=== PATIENT | male | born 1980 | race African-American/Black ===

== ENCOUNTER 2023-04-25 09:58 | Outpatient (CLI) | payer OTHER, SELFPAY ==
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
== END 2023-04-25 09:59 | disposition home or self-care (01) ==
PROVIDERS: PCP Emergency Medicine; Visit Provider Emergency Medicine
DX: M23.51 Chronic instability of knee, right knee (principal); M16.11 Unilateral primary osteoarthritis, right hip
CPT/HCPCS: 73502; 73552; 73564; 73590; 73610; 73630

== ENCOUNTER 2024-04-15 10:07 | Outpatient (CLI) | payer OTHER, SELFPAY ==
--- NOTE | ~2024-04-15 | MR_ITS ---
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 These were followed by axial T2-weigh bro, diffusion weighted, gradient, and FLAIR images. Findings: No acute infarct, acute intracranial hemorrhage or mass lesion identified. There is large a rupinder of right frontal lobe encephalomalacia and gliosis. There is mild background periventricular whit e matter disease. Ventricles and subarachnoid spaces are unremarkable. Orbits are unremarkable. There is bilateral maxi llary and ethmoid sinus disease. Mastoid air cells are clear. Major intracranial flow voids are intac t. Sagittal midline structures are intact. 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 Correlate for prior tra nereyda or surgery. Mild background chronic microvascular ischemic change. Sinus disease, as above. Reviewed, dictated and finalized at [facility]. TECH IMPRESSION: Large area of chronic encephalomalacia and gliosis in the right frontal lobe. C orrelate for prior trauma or surgery. Mild background chronic microvascular ischemic change. Sinus disease, as above.
--- OUTSIDE RECORDS SUMMARY | 2024-04-15 10:45 | XMS_ITS | Encounter Summary ---
Author Organization 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 Historical Provider [facility] BARBARA QUAN Final Result documented in this encounter Visit Diagnoses Not on filedocumented in this encounter Care Teams Digital Media Analyst Relationship Specialty Start Date End Date No, Physician PCP - General 10/08/18 10/13/21 Josiah Hyatt MD PCP - General Emergency Medicine 10/14/21 documented as of this encounter
--- OUTSIDE RECORDS SUMMARY | 2024-04-15 10:45 | XMS_ITS | Clinical Summary ---
Author Organization [facility] [address] Address [address] [place] [address] Care Team Providers Care Industrial Aerial Installer Name Role Phone Josiah Hyatt MD Primary Care Provider [phone] Allergies No known active allergies Medications losartan-hydroC HLOROthiazide (HYZAAR) 100-12.5 mg per tablet Take 1 tablet by mouth daily Active hydrALAZINE (APRESOLINE) 10 mg tablet Take by mouth 06/08/2019 Active carvediloL (COREG) 25 mg tablet Take 2 tablets (50 mg total) by mouth 2 (two) times a day 10/21/2022 Active levETIRAcetam (KEPPRA) 750 mg tablet Take 1 tablet (750 mg total) by mouth every 12 (twelve) hours Active atorvastatin (LIPITOR) 40 mg tablet Take 1 tablet (40 mg total) by mouth daily 10/22/2023 Active metFORMIN (GLUCOPHAGE) 1,000 mg tablet Take by mouth 06/09/2019 Active ferrous sulfate 325 mg (65 mg of elemental iron) tablet Take 65 mg by mouth 04/18/2022 Active cholecalciferol (VITAMIN D-3) 50,000 unit capsule Take 1 capsule (50,000 Units total) by mouth once a week 10/22/2023 Active Jardiance 25 mg tabletIndicatio ns:Type 2 diabetes mellitus with hyperglycemia, with long-term current use of insulin (HCC) Take 1 tablet (25 mg total) by mouth daily 30 tablet 11 11/02/2023 Active dulaglutide (TRULICITY) 0.75 mg/0.5 mL pen injectorIndicat ions:Type 2 diabetes mellitus with hyperglycemia, with long-term current use of insulin (HCC) Inject 0.5 mL (0.75 mg total) under the skin every 7 days 2 mL 11/02/2023 Active dulaglutide (TRULICITY) 1.5 mg/0.5 mL pen injectorIndicat ions:Type 2 diabetes mellitus with hyperglycemia, with long-term current use of insulin (HCC) Inject 0.5 mL (1.5 mg total) under the skin once a week 2 mL 11 12/03/2023 5 Active Active Problems Problem Noted Date Diagnosed Date Type 2 diabetes mellitus wit h hyperglycemia, with long-term current use of insulin 11/02/2023 Assessment & Plan (11/02/2023 2:41 PM CDT): Chronic, overall well controlled A1c 6.0% , at goal Counseled on diet and exercise Recommend to work on healthy fat loss goal Plan to continue metformin 1000 mg 1 tablet oral twice a day Increase Jardiance to 25 mg oral daily Stop Basaglar Start Trulicity 0.75 mg subQ weekly for 4 weeks then increase to 1.5 mg subQ weekly Recommend annual dilated eye exam Daily foot care We will try to obtain patient last eye exam copy Follow-up in 6 months Hypertension associated with diabetes 11/02/2023 Assessment & Plan (11/02/2023 2:40 PM CDT): Chronic, well controlled Continue losartan/hydrochlorothiazide, carvedilol and hydralazine Hyperlipidemia associated with type 2 diabetes katelin noonan 11/02/2023 Assessment & Plan (11/02/2023 2:40 PM CDT): Continue statin therapy Class 2 severe obesity due t o excess calories with serious comorbidity and body mass index (BMI) of 39.0 to 39.9 in adult 11/02/2023 Assessment & Plan (11/02/2023 2:39 PM CDT): Chronic, worsening Discussed about healthy lifestyle habits advise to work on healthy diet, avoid processed foods , increase vegetables and protein and cut back on carb portions and also avoid fruit juices and regular soda and desserts Increase physical activity , recommend at least 150 min of aerobic activity per week and include resistance training 2 x weekly Medical History Medical History Date Comments Hypertension Family History Medical History Relation Name Comments Diabetes Maternal Grandfather Diabetes Mother Relation Name Status Comments Maternal Grandfather Mother Social History Tobacco Use Types Packs/Day Years Used Date Smoking Tobacco: Never Smokeless Tobacco: Never Tobacco Cessation:Counseling Given: Not Answered Personal Safety Answer Date Recorded Getting School Help Needed Not on file 04/21 Sex and Gender Information Value Date Recorded Sex Assigned at Not on file 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 Gender Identity Not on file Sexual Orientation Not on file Obstetrics History Last Filed Vital Signs Vital Sign Reading Time Taken Comments Blood Pressure 122/88 11/02/2023 1:40 PM CDT Pulse 58 11/02/2023 1:40 PM CDT Temperature 36.6 C (97.8 F) 05/20/2017 11:49 AM CDT Respiratory Rate 17 11/02/2023 1:40 PM CDT Oxygen Saturation 95% 05/20/2017 11:49 AM CDT Inhaled Oxygen Concentration - - Weight 110.2 kg (243 lb) 11/02/2023 1:40 PM CDT Height 167.6 cm (5' 6 ) 11/02/2023 1:40 PM CDT Body Mass Index 39.22 11/02/2023 1:40 PM CDT Plan of Treatment Health Maintenance Due Date Last Done Comments Depression Screening 1979 Hepatitis C Screening 1979 Prostate Cancer Screening-PSA 1979 Dilated Eye Exam 1979 DTaP/Tdap/Td Vaccine (1 - Tdap) 09/06/1990 Varicella Vaccines (1 of 2 - 13+ 2-dose series) 09/06/1992 Regular Well Visit/Exam 18-64 09/06/1997 Covid-19 Vaccine (2023- season) 2023 06/13/2020, 05/23/2020 Influenza Vaccine (#1) 2023 , 12/03/2018, 12/23/2016, Additional history exists Hemoglobin A1C 05/01/2024 11/02/2023, 12/27/2016 Albumin Creatinine Ratio, Urine 11/01/2024 11/02/2023 Foot Exam 11/01/2024 11/02/2023 Lipid Panel 11/01/2024 11/02/2023, 12/26/2016 eGFR 11/01/2024 11/02/2023 Pneumococcal vaccine <65 (3 of 3 - PCV20 or PCV21) 09/06/2029 12/04/2015, 05/23/2015 Hepatitis B Screening Completed 05/23/2015 HPV Vaccines Aged Out No longer eligi ble based on patient's age to complete this topic Procedures Procedure Name Priority Date/Time Associated Diagnosis Comments EGFR Routine 11/02/2023 3:00 PM CDT Type 2 diabetes mellitus with hyperglycemia, with long-term current use of insulin (HCC) Hypertension associated with diabetes (HCC) Hyperlipidemia associated with type 2 diabetes mellitus (HCC) LIPID PANEL Routine 11/02/2023 3:00 PM CDT Type 2 diabetes mellitus with hyperglycemia, with long-term current use of insulin (HCC) Hyperlipidemia associated with type 2 diabetes mellitus (HCC) ALBUMIN CREATININE RATIO, URINE Routine 11/02/2023 3:00 PM CDT Type 2 diabetes mellitus with hyperglycemia, with long-term current use of insulin (HCC) Hypertension associated with diabetes (HCC) POCT HEMOGLOBIN A1C Routine 11/02/2023 1 :43 PM CDT Type 2 diabetes mellitus with hyperglycemia, with long-term current use of insulin (HCC) from Last 3 Months or Most Recently Relevant to Health Maintenance Results * eGFR (11/02/2023 3:00 PM CDT) eGFR 89 >=60 mL/min/1. 73 m2 Comment: Interpretive Data Reference Interval Normal >/= 90 mL/min/1.73m2 Mildly decreased* 60 - 89 mL/min/1.73m2 Mildly to moderately decreased 45 - 59 mL/min/1.73m2 Moderately to severely decreased 30 - 44 mL/min/1.73m2 Severely decreased 15 - 29 mL/min/1.73m2 Kidney Failure < 15 mL/min/1.73m2 *Relative to young adult level Estimated glomerular filtration rate is determined by the 2020 CKD-EPI equation recommended by the National Kidney Foundation (A Unifying Approach to GFR Estimation: Recommendations of the NKF-ASK Task Force on Reassessing the Inclusion of Race in Diagnosing Kidney Disease, JASN 2020). The CKD-EPI equation should not be used for patients with unstable renal function and has not been validated in children and those over 70. Current interpretive data was last reviewed 2020. Blood 11/02/2023 3:00 PM CDT 11/02/2023 9:09 PM CDT Shweta Ramsey MD LAB BLOOD ORDERABLE S Final Result Performing Organization Address [facility] Co de Phone Number LILY [phone] [email or web address] [place], [place] [id number] * Albumin Creatinine Ratio, Urine (11/02/2023 3:00 PM CDT) Albumin Ur 21.5 mg/L Comment: Interpretive Data No reference range established. Current interpretive data was last revised 2018. Creatinine Ur 343.1 mg/dL LILY Comment: Interpretive Data No reference range established. Current interpretive data was last revised 2018. Albumin Creatinine Ratio, Ur 6 1 - 29 mg/g LILY Urine 11/02/2023 3:00 PM CDT 11/02/2023 9:01 PM CDT Shweta Ramsey MD LAB URINE ORDERABLE S Final Result Performing Organization Address City/[facility] Co de Phone Number LILY [phone] [address] [email or web address] [address] * (ABNORMAL) Lipid panel (11/02/2023 3:00 PM CDT) Cholesterol 64 30 - 199 mg/dL Comment: Interpretive Data Ages < or = 19 years Acceptable: <170 mg/dL Borderline high: 170-199 mg/dL High: >or= 200 mg/dL Ages > or = 20 years Desirable: <200 mg/dL Borderline high: 200-239 mg/dL High: >or= 240 mg/dL Literature References: 1. Expert Panel on Integrated Guidelines for Cardiovascular Health and Risk Reduction in Children and Adolescents. Pediatrics 2011;128:S213 2. NCEP Expert Panel. Circulation 2004;110:227 Current Interpretive Data was last revised on 2017. Triglycerides 81 <=149 mg/dL LILY Comment: Interpretive Data Ages < or = 9 years Acceptable: <75 mg/dL Borderline high: 75-99 mg/dL High: >or= 100 mg/dL Ages 10 to 20 years Acceptable: <90 mg/dL Borderline high: 90-129 mg/dL High: >or= 130 mg/dL Ages > or = 20 years Desirable: <150 mg/dL Borderline high: 150-199 mg/dL High: 200-499 mg/dL Very high: >or= 499 mg/dL Literature References: 1. Expert Panel on Integrated Guidelines for Cardiovascular Health and Risk Reduction in Children and Adolescents. Pediatrics 2011;128:S213 2. NCEP Expert Panel. Circulation 2004;110:227 Current Interpretive Data was last revised on 2017. HDL 31(L) >=40 mg/dL LILY Comment: Interpretive Data Ages < or = 19 years Acceptable: >45 mg/dL Borderline low: 40-45 mg/dL Low: <40 mg/dL Ages > or = 20 years Desirable: >or= 60 mg/dL Low: <40 mg/dL Literature References: 1. Expert Panel on Integrated Guidelines for Cardiovascular Health and Risk Reduction in Children and Adolescents. Pediatrics 2011;128:S213 2. NCEP Expert Panel. Circulation 2004;110:227 Current Interpretive Data was last revised on 2017. LDL, calculated 16 <=129 mg/dL LILY Comment: Interpretive Data Ages < or = 19 years Acceptable: <110 mg/dL Borderline high: 110-129 mg/dL High: >or= 130 mg/dL Ages > or = 20 years Optimal: <100 mg/dL Near optimal: 100-129 mg/dL Borderline high: 130-159 mg/dL High: >160 mg/dL Calculated using the Retana LDL-C estimating equation. This equation was implemented on 2023. Prior to this date LDL-C was estimated using the Friedewald equation. Literature References: 1. Expert Panel on Integrated Guidelines for Cardiovascular Health and Risk Reduction in Children and Adolescents. Pediatrics 2011;128:S213 2. NCEP Expert Panel. Circulation 2004;110:227 3. Mazin M et al. JHON Cardiol. 2020 June 23;5(5):540-548. doi: 10.1001/jamacardio.2020.0013 Current Interpretive Data was last revised on 2023. Non-HDL Cholesterol 33 mg/dL LILY GUEVARA Comment: Interpretive Data Ages < or = 19 years Acceptable: <120 mg/dL Borderline high: 120-144 mg/dL High: >145 mg/dL Ages > or = 20 years When triglycerides are >200 mg/dL, Non-HDL cholesterol is a secondary target of therapy with treatment goals that are 30 mg/dL greater than the LDL cholesterol target. Literature References: 1. Expert Panel on Integrated Guidelines for Cardiovascular Health and Risk Reduction in Children and Adolescents. Pediatrics 2011;128:S213 2. NCEP Expert Panel. Circulation 2004;110:227 Current Interpretive Data was last revised on 2017. Chol/HDL ratio 2 LILY Blood 11/02/2023 3:00 PM CDT 11/02/2023 9:01 PM CDT us Shweta Ramsey MD LAB BLOOD ORDERABLE S Final Result LILY GUEVARA [address] [place] [address] * POCT hemoglobin A1c (11/02/2023 1:43 PM CDT) Hemoglobin A1C, POC 6.0 4.0 - 5.6 % Blood 11/02/2023 1:43 PM CDT us Shweta Ramsey MD POINT OF CARE TEST ORDERABLES Final Result from Last 3 Months or Most Recently Relevant to Health Maintenance Insurance [facility] [place] [address] [place] [address] Member Subscriber Plan / Payer ( fective 2021-Present) Name:DipakEndy Relation to Subscriber:Self Name:Endy Quesada Payer ID:[id number] (NAIC) Type:MEDICAID RISK OTHER Address: [address] Advance Directives For more information, please contact: [phone] Documents on File Type Date Recorded Patient Safety Inspector Expl anation ADVANCE DIRECTIVE 12/26/2016 12:00 AM COLTON Rolle OF [employer] DEVELOPER FINANCIAL/MEDICAL Care Teams Industrial Aerial Installer Relationship Specialty Start Date End Date Josiah Hyatt MD PCP - General Emergency Medicine 10/14/21
--- OUTSIDE RECORDS SUMMARY | 2024-04-15 10:45 | XMS_ITS | Encounter Summary ---
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
--- OUTSIDE RECORDS SUMMARY | 2024-04-15 10:45 | XMS_ITS | Encounter Summary ---
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 Historical Provider [facility] PROCE KADEEM Final Result * CARDIOLOGY REPORT (07/01/2016 12:00 AM CDT) Anatomical Region Laterality Modality Other Narrative 07/01/2016 12:00 AM CDT Ordered by an unspecified provider. Historical Provider CV CARDIAC [facility] PROCE DURES Final Result documented in this encounter Visit Diagnoses Not on filedocumented in this encounter Care Teams Contract Clerk Automobile Relationship Specialty Start Date End Date No, Physician PCP - General 10/08/18 10/13/21 Josiah Hyatt MD PCP - General Emergency Medicine 10/14/21 documented as of this encounter
--- OUTSIDE RECORDS SUMMARY | 2024-04-15 10:45 | XMS_ITS | Clinical Summary ---
Author Organization [facility] Address [address] [place] [address] Care Team Providers Care Nurses Medical Assistants Phlebotomists Name Role Phone Josiah Hyatt MD Primary Care Provider [phone] Social History Tobacco Use Types Packs/Day Years Used Date Smoking Tobacco: Never Assessed Sex and Gender Information Value Date Recorded Sex Assigned at Not on file Legal Sex Male 8:30 PM CDT Gender Identity Not on file Sexual Orientation Not on file Plan of Treatment Health Maintenance Due Date Last Done Comments Annual Physical 09/06/1982 Hepatitis C 09/06/1997 DTaP, Tdap and Td Vaccines (1 - Tdap) 09/06/1998 Hepatitis B Vaccines (1 of 3 - 19+ 3-dose series) 09/06/1998 COVID-19 Vaccine ( season) 2023 06/13/2020, 05/23/2020 Influenza Adult (#1) 2023 12/08/2019, 12/03/2018, 12/23/2016, Additional history exists Pneumococcal Vaccine: Pediatrics (0 to 5 Years) and At-Risk Patients (6 to 64 Years) Aged Out 12/04/2015, 05/23/2015 No longer eligibl e based on patient's age to complete this topic HPV Vaccines Aged Out No longer eligi ble based on patient's age to complete this topic Meningococcal B Vaccine Aged Out No l onger eligible based on patient's age to complete this topic Meningococcal Vaccine Aged Out No david anny eligible based on patient's age to complete this topic RSV Immunizations Under 20 Months Aged Out No longer eligible based on patient's age to complete this topic Additional Health Concerns Infection Onset Date 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
--- OUTSIDE RECORDS SUMMARY | 2024-04-15 10:45 | XMS_ITS | Referral Summary ---
Author Organization [facility] [address] Address [address] [place] [address] Care Team Providers Care Building Energy Consultant Name Role Phone Josiah Hyatt MD Primary Care Provider [phone] Allergies No known active allergies Medications losartan-hydroC [...] and include resistance training 2 x weekly Social History Tobacco Use Types Packs/Day Years Used Date Smoking Tobacco: Never Smokeless Tobacco: Never Tobacco Cessation:Counseling Given: Not Answered Personal Safety Answer Date Recorded Getting School Help Needed Not on file 04/21 Sex and Gender Information Value Date Recorded Sex Assigned at Not on file 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 Current interpretive data was last revised 2018. Creatinine Ur 343.1 mg/dL [facility] Comment: Interpretive Data No reference range established. Current interpretive data was last revised 2018. Albumin Creatinine Ratio, Ur 6 1 - 29 mg/g [facility] Urine 11/02/2023 3:00 PM CDT 11/02/2023 9:01 PM CDT us Shweta Ramsey MD LAB URINE ORDERABLE S Final Result [facility] [address] [place] [address] * (ABNORMAL) Lipid panel (11/02/2023 3:00 PM [...] on 2017. Triglycerides 81 <=149 mg/dL [facility]A Comment: Interpretive Data Ages [...] on 2017. HDL 31(L) >=40 mg/dL [facility] GUEVAR[facility] Comment: Interpretive Data Ages [...] 2017. LDL, calculated 16 <=129 mg/dL [facility] GUEVARA Comment: Interpretive Data Ages < or = 19 years Acceptable: <110 mg/dL Borderline high: 110-129 mg/dL High: >or= 130 mg/dL Ages > or = 20 years Optimal: <100 mg/dL Near optimal: 100-129 mg/dL Borderline high: 130-159 mg/dL High: >160 mg/dL Calculated using the Mazin LDL-C estimating equation. This equation was implemented on 2023. Prior to this date LDL-C was estimated using the Friedewald equation. Literature References: 1. Expert Panel on Integrated Guidelines for Cardiovascular Health and Risk Reduction in Children and Adolescents. Pediatrics 2011;128:S213 2. NCEP Expert Panel. Circulation 2004;110:227 3. Mazin Wisdom et al. JHON Cardiol. 2019June 23;5(5):540-548. doi: 10.1001/jamacardio.2020.0013 Current Interpretive Data was [...] revised on 2017. Chol/HDL ratio 2 [facility] Blood 11/02/2023 3:00 PM CDT 11/02/2023 9:01 PM CDT us Shweta Ramsey MD LAB BLOOD ORDERABLE S Final Result [facility] [id number] Department [place] [address] * POCT hemoglobin A1c (11/02/2023 1:43 PM CDT) Hemoglobin A1C, POC 6.0 4.0 - 5.6 % Blood 11/02/2023 1:43 PM CDT Shweta Ramsey MD POINT OF CARE TEST ORDERABLES Final Result from Last 3 Months or Most Recently Relevant to Health Maintenance Insurance Member Subscriber Plan / Payer ( fective 2021-Present) Name:Endy Quesada Relation to Subscriber:Self Name:Endy Quesada Payer ID:[id number] (NAIC) Type:MEDICAID RISK OTHER Address: [address] Advance Directives For more information, please contact: [phone] Documents on File Type Date Recorded 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
--- OUTSIDE RECORDS SUMMARY | 2024-04-15 10:45 | XMS_ITS | Encounter Summary ---
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
== END 2024-04-15 10:08 | disposition home or self-care (01) ==
PROVIDERS: PCP Emergency Medicine; Visit Provider Student in an Organized Health Care Education/Training Program
DX: R56.9 Unspecified convulsions (principal); G93.89 Other specified disorders of brain; J32.9 Chronic sinusitis, unspecified
CPT/HCPCS: 70551